=== PATIENT | female | born 1950 | race Caucasian/White ===

== ENCOUNTER 2016-06-14 12:52 | Outpatient (CLI) | payer OTHER ==
--- NOTE | 2016-06-14 14:24 | DIAGNOSTIC IMAGING REPORT ---
PROCEDURE: CT SINUS/FACIAL BONES W/O CONT CLINICAL INDICATION: SINUSITIS TECHNIQUE: Noncontrast axial CT images through the sinuses. Coronal and sagittal reformations were created. COMPARISON: None. FINDINGS: The frontal sinuses are normally aerated. The outflow tracts are patent. Sphenoid sinuses and their outflow tracts are patent. The ethmoid sinuses clear. There is an air-fluid level in the right maxillary sinus. The outflow tract on the right is open. There is mucoperiosteal thickening in the left maxillary sinus. Mucoperiosteal thickenings s blocking the outflow tract of the left maxillary sinus. The nasal septum is midline without significant spurring. Nasal passages are patent with normal nasal turbinate morphology. No facial bone fractures. Temporomandibular joints are normally aligned. Bony orbits are intact. Orbital soft tissues appear normal. Facial soft tissues and visible glandular structures are symmetric. IMPRESSION: 1. Right maxillary sinus air-fluid level with patent outflow tract. 2. Mucoperiosteal thickening left maxillary sinus with blockage of the outflow tract. All CT scans at this facility use dose modulation, iterative reconstruction, and/or weight-based dosing when appropriate to reduce radiation dose to as low as reasonably achievable.
== END 2016-06-14 23:00 ==
LOC: CT SRH 12:52
DX: J32.8 Other chronic sinusitis (principal)